=== PATIENT | male | born 1975 | race Caucasian/White ===

== ENCOUNTER 2018-12-15 13:41 | Emergency (ER) | payer MEDICAID ==
[~2018-12-15] VITALS: Ht 193 cm; Wt 101.2 kg
[2018-12-15 13:47] VITALS: BP 143/99; Ht 193 cm; Wt 101.2 kg
== END 2018-12-15 15:40 | disposition home or self-care (01) ==
LOC: ED 13:41
DX: L03.213 Periorbital cellulitis (principal); H10.89 Other conjunctivitis; B96.89 Other specified bacterial agents as the cause of diseases classified elsewhere; H01.004 Unspecified blepharitis left upper eyelid; I10 Essential (primary) hypertension